=== PATIENT | male | born 1950 | race Caucasian/White ===

== ENCOUNTER 2017-06-01 10:12 | Emergency (ER) | payer MEDICARE ==
[~2017-06-01] VITALS: Wt 78.0 kg
[2017-06-01 11:51] LABS: BASOPHILS % 0.4 % (0.0-2.0); EOSINOPHILS % 0.6 % (0.0-7.0); HEMATOCRIT 49.2 % (42.0-52.0); HEMOGLOBIN 15.5 g/dl (14.0-18.0); LYMPHOCYTES # 1.1 10^3/ul (0.8-2.9); LYMPHOCYTES % 15.2 % (15.0-51.0); MEAN CORPUSCULAR HEMOGLOBIN 26.3 pg (29.0-33.0); MEAN CORPUSCULAR HGB CONC 31.5 g/dl (32.0-37.0); MEAN CORPUSCULAR VOLUME 83.4 fl (82.0-101.0); MEAN PLATELET VOLUME 9.8 fl (7.4-10.4); MONOCYTE # 0.5 10^3/ul (0.3-0.9); MONOCYTES % 6.8 % (0.0-11.0); NEUTROPHIL # 5.4 10^3/ul (1.6-7.5); NEUTROPHILS % 76.7 % (39.0-77.0); PLATELET COUNT 232 10^3/UL (140-415); RED CELL DISTRIBUTION WIDTH 12.2 % (11.5-14.5)
--- NOTE | 2017-06-01 12:09 | RADRPT ---
PROCEDURE: XR Chest. CLINICAL INDICATION: chest pain TECHNIQUE: Single frontal view of the chest was obtained COMPARISON: None FINDINGS: There is mild cardiomegaly. There is mild right upper lobe linear atelectasis versus scarring. There is a 4 mm nodular opacity in the left lower lobe, suspicious for calcified granuloma. There is no pleural effusion or pneumothorax. RPTAT: AA IMPRESSION: Mild cardiomegaly. Right upper lobe linear atelectasis versus scarring. Probable small calcified granuloma in the left lung base. .Faustino Silva MD, MD Date Time Electronically viewed and signed by .Faustino Silva MD, on 06/01/2017 12:08 .S/
[2017-06-01 12:13] LABS: ANION GAP 15 (8-16); BLOOD UREA NITROGEN 15 mg/dl (7-20); CALCIUM 10.2 mg/dl (8.4-10.2); CARBON DIOXIDE 28 mmol/L (21-31); CHLORIDE 105 mmol/L (97-110); CREATININE 0.77 mg/dl (0.61-1.24); GLUCOSE 95 mg/dl (70-220); POTASSIUM 4.5 mmol/L (3.5-5.1); SODIUM 143 mmol/L (135-144)
[2017-06-01 12:25] LABS: TROPONIN-I < 0.012 ng/ml (0.00-0.12)
[2017-06-01 12:58] LABS: T3 UPTAKE 29.9 % (23.5-40.5)
--- NOTE | 2017-06-01 13:55 | ERD ---
ER Documentation Chief Complaint Chief Complaint MILD CHEST PAIN, PALPITATION, ONSET 1 WEEK, NO SOB HPI This is a 67-year-old male. A global marketing manager was used. The patient describes 1 week of constant symptoms of palpitations. He denies any chest pain or pressure. He states usually around 1 AM for the past week he has been woken up by palpitations on the left side of his chest. Lasts for approximately 5-10 minutes and completely resolved. He denies any pleuritic pain exertional symptoms or significant shortness of breath. The patient notes some increased social stressors recently. He states that it is only occurring in the middle the night and not occurring during the day or with exertion. ROS All systems reviewed and are negative except as per history of present illness. Medications Home Meds No Active Prescriptions or Reported Meds Allergies Allergies: Coded Allergies: No Known Allergy (Unverified , 06/01/17) PMhx/Soc Medical and Surgical Hx: pt denies Medical Hx FmHx Family History: No diabetes Physical Exam Vitals Vital Signs Date Time Temp Pulse Resp B/P Pulse Ox O2 Delivery O2 Flow Rate FiO2 06/01/17 10:21 98.1 88 17 143/85 98 Physical Exam General: Well developed, well nourished, no acute distress Head: Normocephalic, atraumatic. Eyes: Pupils equally reactive, EOM intact ENT: Moist mucous membranes Neck: Supple, no lymphadenopathy Respiratory: Lungs clear bilaterally, no distress Cardiovascular: RRR, no murmurs, rubs, or gallops Abdominal: Soft, non-tender, non-distended, no peritoneal signs : Deferred MSK: No edema, no unilateral swelling, 5/5 strength Neurologic: Alert and oriented, moving all extremities, normal speech, no focal weakness, no cerebellar signs Skin: No rash Psych: Normal mood Result Diagram: 06/01/17 1120 06/01/17 1120 Results 24 hrs Laboratory Tests Test 06/01/17 11:20 White Blood Count 7.010^3/ul Red Blood Count 5.9010^6/ul Hemoglobin 15.5g/dl Hematocrit 49.2% Mean Corpuscular Volume 83.4fl Mean Corpuscular Hemoglobin 26.3pg Mean Corpuscular Hemoglobin Concent 31.5g/dl Red Cell Distribution Width 12.2% Platelet Count 99255^3/UL Mean Platelet Volume 9.8fl Neutrophils % 76.7% Lymphocytes % 15.2% Monocytes % 6.8% Eosinophils % 0.6% Basophils % 0.4% Nucleated Red Blood Cells % 0.0/100WBC Neutrophils # 5.410^3/ul Lymphocytes # 1.110^3/ul Monocytes # 0.510^3/ul Eosinophils # 0.010^3/ul Basophils # 0.010^3/ul Nucleated Red Blood Cells # 0.010^3/ul Sodium Level 143mmol/L Potassium Level 4.5mmol/L Chloride Level 105mmol/L Carbon Dioxide Level 28mmol/L Anion Gap 15 Blood Urea Nitrogen 15mg/dl Creatinine 0.77mg/dl Glucose Level 95mg/dl Calcium Level 10.2mg/dl Troponin I < 0.012ng/ml Free Thyroxine Index 2.96ug/ml Thyroxine (T4) 9.9ug/dl Triiodothyronine (T3) Uptake 29.9% Procedures/MDM EKG, MONITORS, & DIAGNOSTIC IMAGING: EKG: I reviewed and interpreted a 12-lead EKG. Rhythm: Normal sinus rhythm Ectopy: None Intervals: No abnormalities ST segments: No elevations or depressions T waves: No contiguous inversions Repeat EKG: EKG: I reviewed and interpreted a 12-lead EKG. Rhythm: Normal sinus rhythm Ectopy: None Intervals: No abnormalities ST segments: No elevations or depressions T waves: No contiguous inversions Chest x-ray: I reviewed and interpreted a 1 view of the chest Mediastinum: No enlargement Cardiac silhouette: No cardiomegaly Airspace: Clear lung jimenez bilaterally without evidence of pneumothorax Bones: No evidence of fracture LAB INTERPRETATION: First troponin negative. Repeat pending. MEDICAL DECISION MAKING: The patient's history, physical exam and clinical presentation is inconsistent with acute coronary syndrome. The patient is slightly hypertensive. His palpitations are nonspecific and only nocturnal. Consider stress versus reflux versus TIFFANIE. The patient does not have exertional symptoms and does not have anginal equivalent. He has no symptoms currently. However, given the patient' s age I do believe that serial troponins in the emergency would be appropriate. Based on the patient's clinical exam and history and risk factors, I have a much lower clinical concern for pulmonary embolism, acute aortic dissection, pneumothorax, pneumonia, cardiac tamponade HEART Score: 2 MACE Rate: Less than 1.7% Shared Decision Making: We had a conversation regarding risk stratification, MACE rate, and the risks, benefits, alternatives of disposition planning options. Disposition planning: I believe serial troponin the emergency room with outpatient management is appropriate given symptoms only occurring at night, nonexertional and very atypical. Patient is agreeable. ER COURSE: The patient continues to be asymptomatic here in the emergency room. He is describing palpitations that are not consistent with anginal equivalent. His initial troponin is negative. The patient will have a 3 hour second troponin. If negative the patient can be safely discharged with outpatient follow-up. The patient will be endorsed to the oncoming provider to follow-up on the troponin. Again if negative the patient can be safely discharged. Outpatient primary care evaluation and possible cardiology consultation for Holter monitor or event monitor would be reasonable. Patient's blood pressure was elevated (>120/80) but appears stable without evidence of hypertensive emergency or urgency. The patient was counseled about the risks of hypertension and urged to pursue outpatient monitoring and therapy within a week with their primary care physician. I kept the patient and/or family informed of laboratory and diagnostic imaging results throughout the emergency room course. DISPOSITION PLAN: We discussed follow up with the patient's primary care doctor within 24 to 48 hours as needed. We also discussed return to the emergency room for worsening symptoms or worsening condition. Outpatient referral: Cardiology Discharge Medications: none Departure Diagnosis: Primary Impression: Palpitations Additional Impression: Essential hypertension Condition: Stable Patient Instructions: Palpitations Referrals: [facility] YOU HAVE RECEIVED A MEDICAL SCREENING EXAM AND THE RESULTS INDICATE THAT YOU DO NOT HAVE A CONDITION THAT REQUIRES URGENT TREATMENT IN THE EMERGENCY DEPARTMENT. FURTHER EVALUATION AND TREATMENT OF YOUR CONDITION CAN WAIT UNTIL YOU ARE SEEN IN YOUR DOCTORS OFFICE WITHIN THE NEXT 1-2 DAYS. IT IS YOUR RESPONSIBILITY TO MAKE AN APPOINTMENT FOR FOLOW-UP CARE. IF YOU HAVE A PRIMARY DOCTOR --you should call your primary doctor and schedule an appointment IF YOU DO NOT HAVE A PRIMARY DOCTOR YOU CAN CALL OUR PHYSICIAN REFERRAL HOTLINE AT IF YOU CAN NOT AFFORD TO SEE A PHYSICIAN YOU CAN CHOSE FROM THE FOLLOWING [facility] [address] [facility] [address] [facility] [address] [facility] [address] [facility] [address] [facility]. [facility]. [address] [facility] [facility] YOU HAVE RECEIVED A MEDICAL SCREENING EXAM AND THE RESULTS INDICATE THAT YOU DO NOT HAVE A CONDITION THAT REQUIRES URGENT TREATMENT IN THE EMERGENCY DEPARTMENT. FURTHER EVALUATION AND TREATMENT OF YOUR CONDITION CAN WAIT UNTIL YOU ARE SEEN IN YOUR DOCTORS OFFICE WITHIN THE NEXT 1-2 DAYS. IT IS YOUR RESPONSIBILITY TO MAKE AN APPOINTMENT FOR FOLOW-UP CARE. IF YOU HAVE A PRIMARY DOCTOR --you should call your primary doctor and schedule and appointment IF YOU DO NOT HAVE A PRIMARY DOCTOR YOU CAN CALL OUR PHYSICIAN REFERRAL HOTLINE AT . IF YOU CAN NOT AFFORD TO SEE A PHYSICIAN YOU CAN CHOSE FROM THE FOLLOWING [facility] INSTITUTIONS: [facility] [address] [place] [address] [facility] [address] [place] [address] [facility] [address] [place] [address] Additional Instructions: You need follow up with a PMD and geographic information system analyst if symptoms continue. Call your primary care doctor TOMORROW for an appointment during the next 1 WEEK.Tell the clinical secretary that you were referred from this facility.See the doctor sooner or return here if your condition worsens before your appointment time. Llame al doctor MAANA y dom jing FOREIGN PARA DENTRO DE 2-3 LUONG.Dgale a la secretaria que nosotros le instruimos hacer esta foreign.Avise o llame si murillo condicin se empeora antes de la foreign. Regresa aqui si peor o no mejor. SEAN GARCIA MD Jun 01, 2017 13:55
[2017-06-01 15:01] VITALS: BP 137/82; PULSE 84; RESP 16
== END 2017-06-01 15:35 | disposition home or self-care (01) ==
LOC: E/R 10:12
DX: R00.2 Palpitations (principal); I10 Essential (primary) hypertension
CPT/HCPCS: 36415; 71010; 80048; 84436; 84479; 84484; 85025; 93005